=== PATIENT | female | born 1980 | race Asian ===

== ENCOUNTER 2019-12-09 14:30 | Emergency (ER) | payer SELFPAY ==
[~2019-12-09] VITALS: Ht 167.6 cm; Wt 57.3 kg
[~2019-12-09 14:30] MED LIST: AMOXICILLIN 50500 MG PO
[2019-12-09 14:38] VITALS: BP 111/70
[2019-12-09] MEDS ORDERED: SUDAFED 24-HOU240 MG PO (15:30)
[2019-12-09 15:39] VITALS: PULSE 74
== END 2019-12-09 15:39 | disposition home or self-care (01) ==
LOC: COL.ER 14:30
DX: H66.91 Otitis media, unspecified, right ear (principal); H61.21 Impacted cerumen, right ear; J06.9 Acute upper respiratory infection, unspecified